=== PATIENT | male | born 1985 | race Caucasian/White ===

== ENCOUNTER 2017-08-22 19:33 | Emergency (ER) | payer SELFPAY ==
--- NOTE | 2017-08-22 19:49 | UC ---
Throat Pain/Nasal Yury HPI - HPI Summary HPI Summary: 32 YEAR OLD MALE PRESENTS WITH RIGHT LOWER MOLAR ABSCESS. - History of Current Complaint Stated Complaint: LUMP UNDER JAW,THROAT/EAR PAIN Time Seen by Provider: 08/22/17 19:49 Hx Obtained From: Patient Onset/Duration: Sudden Onset Severity: Moderate Pain Scale Used: 0-10 Numeric - 8 - Allergies/Home Medications Allergies/Adverse Reactions: Allergies Allergy/AdvReac Type Severity Reaction Status Date / Time No Known Allergies Allergy Verified 03/06/15 19:58 Home Medications: Home Medications Aleve 220mg 660 mg PO Q4H PRN 08/22/17 [History Confirmed 08/22/17] Amoxicillin PO (*) [Amoxicillin 500 MG CAP*] 500 mg PO TID 08/22/17 [History Confirmed 08/22/17] PMH/Surg Hx/FS Hx/Imm Hx Previously Healthy: Yes - Surgical History Surgical History: None - Social History Alcohol Use: Rare Substance Use Type: None Smoking Status (MU): Heavy Every Day Tobacco Smoker Type: Cigarettes Amount Used/How Often: 1 ppd Length of Time of Smoking/Using Tobacco: 10 yrs Have You Smoked in the Last Year: Yes - Immunization History Most Recent Tetanus Shot: 2-3 yrs ago Review of Systems Constitutional: Negative Skin: Negative Eyes: Negative ENT: Dental Pain Respiratory: Negative Cardiovascular: Negative Gastrointestinal: Negative Genitourinary: Negative Motor: Negative Neurovascular: Negative Musculoskeletal: Negative Neurological: Negative Psychological: Negative All Other Systems Reviewed And Are Negative: Yes Physical Exam Triage Information Reviewed: Yes Vital Signs Reviewed: Yes Eye Exam: Normal ENT Exam: Normal Dental: Positive: Abscess @ Neck exam: Normal Neck: Positive: 1 Respiratory Exam: Normal Cardiovascular Exam: Normal Abdominal Exam: Normal Musculoskeletal Exam: Normal Neurological Exam: Normal Psychological Exam: Normal Skin Exam: Normal Throat Pain/Nasal Course/Dx - Differential Dx/Diagnosis Provider Diagnoses: RIGHT MOLAR ABSCESS Discharge - Discharge Plan Condition: Stable Disposition: HOME Prescriptions: Chlorhexidine MW 0.12% 473ML* [Peridex Mouth Wash 0.12%*] 15 ml MT TID PC #1 btl Clindamycin HCl [Clindamycin 150 MG CAP*] 300 mg PO TID #21 cap Naproxen [Naprosyn 500 mg] 500 mg PO BID PRN #30 tab PRN Reason: Pain Patient Education Materials: Abscess (ED) Referrals: No Primary Care Phys,NOPCP [Primary Care Provider] -
[2017-08-22 19:53] VITALS: BP 115/60
[2017-08-22] MEDS ORDERED: Naproxen TAB* 250 MG PO ONE (20:35)
[2017-08-22] MEDS ORDERED: Clindamycin CAP* 150 MG PO ONE (20:35)
[2017-08-22] MEDS ORDERED: Lidocaine 2% VISCOUS* 15 ML UDC PO ONE (20:36)
== END 2017-08-22 21:02 | disposition home or self-care (01) ==
LOC: UCCORT 19:33
DX: K04.7 Periapical abscess without sinus (principal); F17.210 Nicotine dependence, cigarettes, uncomplicated
CPT/HCPCS: 99212; A9270-GY; G0463

== ENCOUNTER 2017-09-19 19:06 | Emergency (ER) | payer SELFPAY ==
[2017-09-19 19:13] VITALS: BP 121/79
[2017-09-19] MEDS ORDERED: Penicillin VK TAB* 250 MG PO ONE (19:14)
--- NOTE | 2017-09-19 19:19 | UC ---
Dental HPI - HPI Summary HPI Summary: patient has had increased pain and pressure in the lower jaw, multiple broken molar and peridontal disease noted.large amount of swelling. - History of Current Complaint Chief Complaint: UCDentalProblem Stated Complaint: DENTAL Time Seen by Provider: 09/19/17 19:13 Hx Obtained From: Patient Onset/Duration: Sudden Onset, Lasting Days Severity: Moderate Aggravating Factor(s): Chewing Alleviating Factor(s): Nothing Related History: Previous Dental Care on Same Tooth, Swelling - Allergies/Home Medications Allergies/Adverse Reactions: Allergies Allergy/AdvReac Type Severity Reaction Status Date / Time No Known Allergies Allergy Verified 09/19/17 19:13 PMH/Surg Hx/FS Hx/Imm Hx Previously Healthy: Yes - Surgical History Surgical History: None - Family History Known Family History: Positive: Hypertension - Social History Alcohol Use: Rare Substance Use Type: None Smoking Status (MU): Heavy Every Day Tobacco Smoker Type: Cigarettes Amount Used/How Often: 1 ppd Length of Time of Smoking/Using Tobacco: 10 yrs Have You Smoked in the Last Year: Yes - Immunization History Most Recent Tetanus Shot: 2-3 yrs ago Review of Systems Constitutional: Negative Skin: Negative Eyes: Negative ENT: Dental Pain Respiratory: Negative Cardiovascular: Negative Gastrointestinal: Negative Genitourinary: Negative Motor: Negative Neurovascular: Negative Musculoskeletal: Negative Neurological: Negative Psychological: Negative Is Patient Immunocompromised?: No All Other Systems Reviewed And Are Negative: Yes Physical Exam Triage Information Reviewed: Yes Appearance: Well-Appearing, Well-Nourished, Pain Distress Vital Signs: Initial Vital Signs Temp 98.8 F 09/19/17 19:10 Pulse 85 09/19/17 19:10 Resp 16 09/19/17 19:10 BP 121/79 09/19/17 19:10 Pulse Ox 98 09/19/17 19:10 Vital Signs Reviewed: Yes Eye Exam: Normal ENT Exam: Normal ENT: Positive: Pharynx normal, Pharyngeal erythema, TMs normal Dental Exam: Normal Dental: Positive: Percussion Tenderness @, Gross Decay/Caries @, Dental Fracture @, Abscess @ - lower right jaw, Cervical Lymphadenopathy - right side Neck exam: Normal Neck: Positive: Supple, Nontender, No Lymphadenopathy Respiratory Exam: Normal Respiratory: Positive: Chest non-tender, Lungs clear, Normal breath sounds Cardiovascular Exam: Normal Cardiovascular: Positive: RRR, No Murmur, Pulses Normal Abdominal Exam: Normal Abdomen Description: Positive: Nontender, No Organomegaly, Soft Bowel Sounds: Positive: Present Musculoskeletal Exam: Normal Musculoskeletal: Positive: Strength Intact, ROM Intact, No Edema Neurological Exam: Normal Neurological: Positive: Alert, Muscle Tone Normal Psychological Exam: Normal Skin Exam: Normal Dental Complaint Course/Dx - Course Course Of Treatment: hx obtained, exam performed ,med reviewed, treated for large dental abcess - Differential Dx/Diagnosis Differential Diagnosis/Dx: Dental Abscess, Dental Caries, Fractured Tooth, Peridontic Disease Provider Diagnoses: dental abcess of bottom molars Discharge - Discharge Plan Condition: Stable Disposition: HOME Prescriptions: Penicillin VK 500 MG TAB(NF) [Penicillin VK 500 mg Tab] 500 mg PO QID #28 tab Patient Education Materials: Dental Abscess (ED) Referrals: No Primary Care Phys,NOPCP [Primary Care Provider] - Additional Instructions: 1. take the medication as prescribed. 2. Increase warm compresses and gargling 3. Eat as tolerated 4. continue with ibuprofen for pain
== END 2017-09-19 19:34 | disposition home or self-care (01) ==
LOC: UCCORT 19:06
DX: K04.7 Periapical abscess without sinus (principal); F17.210 Nicotine dependence, cigarettes, uncomplicated
CPT/HCPCS: 99212; A9270-GY; G0463

== ENCOUNTER 2019-03-18 19:01 | Emergency (ER) | payer OTHER ==
[2019-03-18 19:21] VITALS: BP 127/80
[2019-03-18] MEDS ORDERED: Ibuprofen TAB* 400 MG PO ONE (19:32)
--- NOTE | 2019-03-18 19:32 | UC ---
Hand/Wrist HPI - HPI Summary HPI Summary: Went under his house today to shut off a valve, lost his balance and landed with his left hand onto a board with protruding nails, punctured the proximal thenar eminence and medial 4th digit. Washed the wound without pressure and went to work for the afternoon, with increasing pain over the course of the day. 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 He states that he did not think that he did anything to contaminate the wounds. - History Of Current Complaint Chief Complaint: Shayna Stated Complaint: PUNCTURE WOUNDS - LEFT HAND Time Seen by Provider: 03/18/19 19:23 Hx Obtained From: Patient Onset/Duration: Sudden Onset Severity Initially: Moderate Severity Currently: Severe Pain Intensity: 9 Character Of Pain: Aching, Throbbing Aggravating Factor(s): Movement, Flexion, Extension Alleviating Factor(s): Nothing - had not taken analgesics Associated Signs And Symptoms: Positive: Swelling Related History: Dominant Hand Right - Risk Factors Compartment Syndrome Risk Factors: Pain - Allergies/Home Medications Allergies/Adverse Reactions: Allergies Allergy/AdvReac Type Severity Reaction Status Date / Time No Known Allergies Allergy Verified 03/18/19 19:23 PMH/Surg Hx/FS Hx/Imm Hx Previously Healthy: Yes - Surgical History Surgical History: None - Family History Known Family History: Positive: Hypertension - Social History Occupation: Employed Full-time Lives: With Family Alcohol Use: Rare Substance Use Type: None Smoking Status (MU): Heavy Every Day Tobacco Smoker Type: Cigarettes Amount Used/How Often: 1 ppd Length of Time of Smoking/Using Tobacco: 10 yrs Have You Smoked in the Last Year: Yes - Immunization History Most Recent Tetanus Shot: 2007 Review of Systems All Other Systems Reviewed And Are Negative: Yes Musculoskeletal: Positive: Arthralgia, Decreased ROM, Myalgia Physical Exam Triage Information Reviewed: Yes Appearance: Well-Appearing, Well-Nourished, Pain Distress - moderate Vital Signs: Initial Vital Signs Temp 98.2 F 03/18/19 19:16 Pulse 89 03/18/19 19:16 Resp 16 03/18/19 19:16 BP 127/80 03/18/19 19:16 Pulse Ox 97 03/18/19 19:16 Respiratory: Positive: Lungs clear, Normal breath sounds Cardiovascular: Positive: RRR, No Murmur Musculoskeletal Exam: Other - Swelling of the hypothenar eminence with crusted puncture wound approx 6 cm. Puncture wound with crust proximal medial left fourth digit. Areas are tender to palpation. No joint swelling Musculoskeletal: Positive: ROM Intact - passive movment of the wrist, ROM Limited @ - pain with extension of fingers. Neurological Exam: Normal Neurological: Positive: Alert Skin Exam: Other - Faint erythema over the PW ulnar border of the hand, no warmth, no lymphangitis. Diagnostics - Radiology left hand Radiology Interpretation Completed By: ED Physician - No fracture or retained foreign body seen. + swelling of hypothenar eminence. Hand/Wrist Course/Dx - Course Course Of Treatment: cephalexin given for prevention of infection. Advised must go to the ER if pain and swelling progress. Tetanus booster given Reviewed [facility] number [id number] - Differential Dx/Diagnosis Differential Diagnosis/HQI/PQRI: Cellulitis, Puncture Wound Provider Diagnosis: Puncture wound of hand, left, Puncture wound of finger of left hand Discharge - Sign-Out/Discharge Documenting (check all that apply): Patient Departure All imaging exams completed and their final reports reviewed: No - Discharge Plan Condition: Stable Disposition: HOME Prescriptions: Cephalexin CAP* [Keflex 500 CAP*] 500 mg PO QID #28 cap HYDROcodone/ACETAMIN 5-325 MG* [[place] 5-325 TAB*] 2 tab PO Q6H PRN #10 tab MDD 8 PRN Reason: Pain Patient Education Materials: Puncture Wound (ED), Diphtheria/Acellular Pertussis/Tetanus Booster Vaccine (By injection) Referrals: No Primary Care Phys,NOPCP [Primary Care Provider] - Additional Instructions: I suggest soaking your hand for 10 to 15 minutes in warm soapy water or Epsom salts. Take the next dose of cephalexin before bed tonight to ensure a good high dose of antibiotics are on board to decrease the risk of infection. If there is increased pain or swelling, you must go to the emergency room for assessment. Keep your hand elevated as best as possible. Use ibuprofen 800mg every 6 hours as needed for pain. Take with food and stop if it upsets your stomach. You have a prescription for short term use of hydrocodone for pain control You received a tetanus booster tonight. - Billing Disposition and Condition Condition: STABLE Disposition: Home
[2019-03-18] MEDS ORDERED: Tetan/Diph/Pertus SYR(Tdap)* 0.5 ML SYR(BOOSTRIX) use SYR IM ONE (19:33)
[2019-03-18] MEDS ORDERED: Cephalexin CAP* 500 MG PO ONE (20:03)
--- NOTE | 2019-03-19 08:49 | UC ---
- Progress Note Progress Note: xray report left hand : IMPRESSION: No foreign body or subcutaneous air is noted. No fracture is noted. Course/Dx - Diagnoses Provider Diagnoses: Puncture wound of hand, left, Puncture wound of finger of left hand Discharge - Sign-Out/Discharge Documenting (check all that apply): Patient Departure All imaging exams completed and their final reports reviewed: Yes - Discharge Plan Condition: Stable Disposition: HOME Prescriptions: Cephalexin CAP* [Keflex 500 CAP*] 500 mg PO QID #28 cap HYDROcodone/ACETAMIN 5-325 MG* [[place] 5-325 TAB*] 2 tab PO Q6H PRN #10 tab MDD 8 PRN Reason: Pain Patient Education Materials: Diphtheria/Acellular Pertussis/Tetanus Booster Vaccine (By injection), Puncture Wound (ED) Referrals: No Primary Care Phys,NOPCP [Primary Care Provider] - Additional Instructions: I suggest soaking your hand for 10 to 15 minutes in warm soapy water or Epsom salts. Take the next dose of cephalexin before bed tonight to ensure a good high dose of antibiotics are on board to decrease the risk of infection. If there is increased pain or swelling, you must go to the emergency room for assessment. Keep your hand elevated as best as possible. Use ibuprofen 800mg every 6 hours as needed for pain. Take with food and stop if it upsets your stomach. You have a prescription for short term use of hydrocodone for pain control You received a tetanus booster tonight. - Billing Disposition and Condition Condition: STABLE Disposition: Home
== END 2019-03-18 20:29 | disposition home or self-care (01) ==
LOC: UCCORT 19:01
DX: S61.235A Puncture wound without foreign body of left ring finger without damage to nail, initial encounter (principal); S61.431A Puncture wound without foreign body of right hand, initial encounter; F17.210 Nicotine dependence, cigarettes, uncomplicated; W17.89XA Other fall from one level to another, initial encounter; W45.0XXA Nail entering through skin, initial encounter; Y92.009 Unspecified place in unspecified non-institutional (private) residence as the place of occurrence of the external cause
CPT/HCPCS: 90471; 90715; 99212; A9270-GY; G0463

== ENCOUNTER 2019-05-31 17:31 | Emergency (ER) | payer OTHER ==
[2019-05-31 18:29] VITALS: BP 110/71
[2019-05-31] MEDS ORDERED: Ibuprofen ADULT LIQ* 600 MG/30 ML UDC PO ONE (19:02)
--- NOTE | 2019-05-31 19:03 | UC ---
UC General HPI - HPI Summary HPI Summary: pt is c/o head congestion, sore throat, cough, chest congestion, f/c's and bodyaches since yesterday. + SOB on exertion. No cp or hx asthma - History of Current Complaint Chief Complaint: UCGeneralIllness Stated Complaint: BODY ACHES,FATIGUE,SOB Time Seen by Provider: 05/31/19 18:57 Hx Obtained From: Patient Onset/Duration: Gradual Onset Timing: Constant Pain Intensity: 8 Associated Signs & Symptoms: Negative: Diarrhea, Dysuria, Vomiting - Allergy/Home Medications Allergies/Adverse Reactions: Allergies Allergy/AdvReac Type Severity Reaction Status Date / Time No Known Allergies Allergy Verified 05/31/19 18:29 Home Medications: Home Medications NK [No Home Medications Reported] 05/31/19 [History Confirmed 05/31/19] PMH/Surg Hx/FS Hx/Imm Hx Previously Healthy: Yes - Surgical History Surgical History: None - Family History Known Family History: Positive: Hypertension - Social History Occupation: Employed Full-time Alcohol Use: Rare Substance Use Type: None Smoking Status (MU): Heavy Every Day Tobacco Smoker Type: Cigarettes Amount Used/How Often: 1 ppd Length of Time of Smoking/Using Tobacco: 10 yrs Have You Smoked in the Last Year: Yes - Immunization History Most Recent Tetanus Shot: 2007 Review of Systems All Other Systems Reviewed And Are Negative: Yes Constitutional: Positive: Fever, Chills, Fatigue Skin: Negative: Rash ENT: Positive: Sore Throat, Sinus Congestion. Negative: Ear Ache Respiratory: Positive: Shortness Of Breath, Cough Cardiovascular: Negative: Palpitations, Chest Pain Gastrointestinal: Negative: Abdominal Pain, Vomiting, Diarrhea, Nausea Genitourinary: Negative: Dysuria Musculoskeletal: Positive: Myalgia Physical Exam Triage Information Reviewed: Yes Appearance: Ill-Appearing - but non toxic Vital Signs: Initial Vital Signs Temp 99.3 F 05/31/19 18:27 Pulse 73 05/31/19 18:27 Resp 16 05/31/19 18:27 BP 110/71 05/31/19 18:27 Pulse Ox 98 05/31/19 18:27 Vital Signs Reviewed: Yes Eyes: Positive: Conjunctiva Clear ENT: Positive: Pharyngeal erythema, TMs normal. Negative: Nasal congestion, Nasal drainage, Sinus tenderness Neck: Positive: Supple, Tenderness @ - peritonsilar, Enlarged Nodes @ - peritonsilar Respiratory: Positive: No respiratory distress, Decreased breath sounds - slightly, Other: - cough is congested Cardiovascular: Positive: RRR, No Murmur Abdomen Description: Positive: Nontender Musculoskeletal: Positive: ROM Intact Neurological: Positive: Alert Psychological: Positive: Age Appropriate Behavior Skin Exam: Normal Skin: Negative: Rashes Diagnostics - Laboratory Lab Results: rapid strep=neg. - Radiology No standard instances Radiology Interpretation Completed By: ED Physician - wet read=nad Course/Dx - Differential Dx - Multi-Symptom Differential Diagnoses: Other - non toxic. not hypoxic. rapid strep=neg. cxr= nad. - Diagnoses Provider Diagnosis: URI (upper respiratory infection), Pharyngitis, Cough Discharge - Sign-Out/Discharge Documenting (check all that apply): Patient Departure All imaging exams completed and their final reports reviewed: No - Discharge Plan Condition: Stable Disposition: HOME Patient Education Materials: Upper Respiratory Infection (DC), Pharyngitis (ED) , Acute Cough (ED) Forms: *Work Release Referrals: Edward Fisher MD [Medical Doctor] - Additional Instructions: FOLLOW UP IF NOT BETTER WITHIN 5 DAYS OR SOONER IF WORSE. - Billing Disposition and Condition Condition: STABLE Disposition: Home
--- NOTE | 2019-06-01 08:53 | UC ---
- Progress Note Progress Note: chest xray report: IMPRESSION: #. No evidence for pneumonia. #. Elevated lung volumes may reflect obstructive lung disease or simply exuberant inspiratory effort for examination. Course/Dx - Diagnoses Provider Diagnoses: URI (upper respiratory infection), Pharyngitis, Cough Discharge - Sign-Out/Discharge Documenting (check all that apply): Patient Departure All imaging exams completed and their final reports reviewed: Yes - Discharge Plan Condition: Stable Disposition: HOME Patient Education Materials: Pharyngitis (ED), Upper Respiratory Infection (DC) , Acute Cough (ED) Forms: *Work Release Referrals: Edward Fisher MD [Medical Doctor] - Additional Instructions: FOLLOW UP IF NOT BETTER WITHIN 5 DAYS OR SOONER IF WORSE. - Billing Disposition and Condition Condition: STABLE Disposition: Home
== END 2019-05-31 19:40 | disposition home or self-care (01) ==
LOC: UCCORT 17:31
DX: J06.9 Acute upper respiratory infection, unspecified (principal); J02.9 Acute pharyngitis, unspecified; R05 Cough; F17.210 Nicotine dependence, cigarettes, uncomplicated
CPT/HCPCS: 71046; 87651; 99212; A9270-GY; G0463

== ENCOUNTER 2019-11-20 15:35 | Emergency (ER) | payer OTHER ==
[2019-11-20 16:27] VITALS: BP 105/66
--- NOTE | 2019-11-20 16:53 | UC ---
Ear Complaint HPI - HPI Summary HPI Summary: Left ear pain for one week. No recent cold symptoms.Outer ear is very tender to touch. No drainage from ear. Mild muffling of hearing. - History of Current Complaint Chief Complaint: UCEar Stated Complaint: LEFT EAR COMPLAINT Time Seen by Provider: 11/20/19 16:44 Hx Obtained From: Patient Pain Intensity: 8 Pain Scale Used: 0-10 Numeric Aggravating Factors: Nothing Alleviating Factors: Nothing - Allergies/Home Medications Allergies/Adverse Reactions: Allergies Allergy/AdvReac Type Severity Reaction Status Date / Time No Known Allergies Allergy Verified 11/20/19 16:21 Home Medications: Home Medications Naproxen Sodium [Aleve] 220 mg PO PRN 11/20/19 [History] PMH/Surg Hx/FS Hx/Imm Hx - Additional Past Medical History Additional PMH: no chronic condition Previously Healthy: Yes - Surgical History Surgical History: Yes Surgery Procedure, Year, and Place: ear tubes as a child - Family History Known Family History: Positive: Hypertension - Social History Alcohol Use: Rare Substance Use Type: None Smoking Status (MU): Heavy Every Day Tobacco Smoker Type: Cigarettes Amount Used/How Often: 1 ppd Length of Time of Smoking/Using Tobacco: 10 yrs Have You Smoked in the Last Year: Yes Household Exposure Type: Cigarettes - Immunization History Most Recent Tetanus Shot: 2007 Review of Systems All Other Systems Reviewed And Are Negative: Yes Constitutional: Negative: Fever Skin: Negative: Rash ENT: Positive: Ear Ache Respiratory: Negative: Cough Physical Exam Triage Information Reviewed: Yes Appearance: Well-Appearing Vital Signs: Initial Vital Signs Temp 99.3 F 11/20/19 16:22 Pulse 74 11/20/19 16:22 Resp 18 11/20/19 16:22 BP 105/66 11/20/19 16:22 Pulse Ox 97 11/20/19 16:22 Vital Signs Reviewed: Yes Eyes: Positive: Conjunctiva Clear ENT: Positive: Pharynx normal, TMs normal - R side, Other - L TM normal but canal is inflammed w/ debris and tender upon otoscope insertion. no mastoid tenderness and some pain w/ auricle manipulation Neck: Positive: Supple Ear Complaint Course/Dx - Course Course Of Treatment: L OE; acute. Will tx w/ antibx but advised to return if he feels the cartilage is getting involved. AFebrile and good vitals. - Differential Dx/Diagnosis Differential Diagnosis/HQI/PQRI: Otitis Externa, Otitis Media, Other Provider Diagnosis: Otitis externa Discharge ED - Sign-Out/Discharge Documenting (check all that apply): Patient Departure All imaging exams completed and their final reports reviewed: No Studies - Discharge Plan Condition: Good Disposition: HOME Prescriptions: Ciproflox/Dexameth OTIC.SUSP* [Ciprodex OTIC.SUSP*] 4 drop .SEE ORDER BID 7 Days #1 btl Patient Education Materials: Otitis Externa (DC) Referrals: No Primary Care Phys,NOPCP [Primary Care Provider] - Additional Instructions: Please finish full 7 days of treatment and return if symptoms persist. - Billing Disposition and Condition Condition: GOOD Disposition: Home - Attestation Statements Provider Attestation: This patient was not seen by me I was available for consult Chart reviewed KELLY
== END 2019-11-20 17:05 | disposition home or self-care (01) ==
LOC: UCCORT 15:35
DX: H60.502 Unspecified acute noninfective otitis externa, left ear (principal); F17.210 Nicotine dependence, cigarettes, uncomplicated
CPT/HCPCS: 99212; G0463

== ENCOUNTER 2020-02-23 17:38 | Emergency (ER) | payer OTHER ==
[2020-02-23] MEDS ORDERED: Eye Irrigation Solution 30 ML BOTTLE RIGHT EYE ONE (18:28)
[2020-02-23] MEDS ORDERED: Fluorescein Sodium TOPICAL* 1 MG TEST STRIP OPHTHALMIC ONE (18:29)
[2020-02-23] MEDS ORDERED: Tetracaine 0.5% OPTH.SOL 4 ML* 1 DROP BTL RIGHT EYE ONE (18:29)
[2020-02-23 18:32] VITALS: BP 108/70
--- NOTE | 2020-02-23 18:33 | UC ---
Eye Complaint HPI - HPI Summary HPI Summary: 34 y/o male presents to the urgent care c/o RT eye pain w/ redness and a FB sensation since yesterday. Pt reports he was working under his car and felt dust went into his eye. He tried to removed it w/ a cotton swab and felt better. However 2 hrs later he was rubbing it and he developed eye irritation. This morning his eye was more red w/ clear eye discharge and a FB sensation. He has mild photophobia. He can read, but it is uncomfortable to keep his eye open. Pain is 7/10 and irritated. Pt denies visual changes, AMAYA, dizziness, fever , cough, SOB, sick contact, abdominal pain, chest pain, N/V/D. Pt is UTD w Tetanus vaccines which was given in 2019. - History of Current Complaint Stated Complaint: RIGHT EYE FOREIGN BODY Time Seen by Provider: 02/23/20 18:28 Hx Obtained From: Patient Onset/Duration: Gradual Onset, Lasting Days - 1 day, Still Present Timing: Constant Severity Initially: Moderate Severity Currently: Moderate Pain Intensity: 7 - RT eye irritation Pain Scale Used: 0-10 Numeric Location of Injury: Conjunctiva - RT red w/ FB sensation Character: Foreign Body Sensation Aggravating Factor(s): Light, Blinking Alleviating Factor(s): Nothing Associated Signs And Symptoms: Positive: Drainage (Clear). Negative: Vision Impairment Bilateral, Swelling Related History: Foreign Body - Pt was working under his car and a FB got into his RT eye - Risk Factors Penetrating Injury Risk Factor: Negative Globe Rupture Risk Factors: Negative Acute Glaucoma Risk Factors: Negative Optic Artery Occlusion Risk Factors: Negative - Allergies/Home Medications Allergies/Adverse Reactions: Allergies Allergy/AdvReac Type Severity Reaction Status Date / Time No Known Allergies Allergy Verified 02/23/20 18:27 Home Medications: Home Medications Erythromycin OPTH OINT* [Erythromycin 0.5% OPTH OINT*] 1 applic RIGHT EYE TID # 1 ophth.oint 02/23/20 [Rx] PMH/Surg Hx/FS Hx/Imm Hx Previously Healthy: Yes - Pt denies PMHX - Surgical History Surgical History: Yes Surgery Procedure, Year, and Place: ear tubes as a child - Family History Known Family History: Positive: Hypertension, Diabetes - Social History Occupation: Employed Full-time Lives: With Family Alcohol Use: Rare Substance Use Type: None Smoking Status (MU): Heavy Every Day Tobacco Smoker Type: Cigarettes Amount Used/How Often: 1/2 ppd Length of Time of Smoking/Using Tobacco: 10 yrs Have You Smoked in the Last Year: Yes Household Exposure Type: Cigarettes - Immunization History Most Recent Tetanus Shot: 2007 Review of Systems All Other Systems Reviewed And Are Negative: Yes Constitutional: Positive: Negative Skin: Positive: Negative Eyes: Positive: Drainage - RT eye clear, Eye Redness - RT eye w/ FB sensation, Photophobia - mild ENT: Positive: Negative Respiratory: Positive: Negative Cardiovascular: Positive: Negative Gastrointestinal: Positive: Negative Genitourinary: Positive: Negative Motor: Positive: Negative Neurovascular: Positive: Negative Musculoskeletal: Positive: Negative Neurological/Mental Status: Positive: Negative Psychological: Positive: Negative Is Patient Immunocompromised?: No Physical Exam - Summary Physical Exam Summary: Vital Signs Reviewed: Yes General: Well appearing, well nourished male in no apparent pain distress Eyes: Positive: RT Conjunctiva Inflamed - Visual acuity: WNL,Visual you: full to confrontation.PERRLA, EOMI intact w/out limitation or complaint of pain. eyelashes clear. mild tearing and yellowish drainage observed. Positive FB body observed around 3 o'clock w/ the magnifying glass. No ciliary flush. No chemosis, No photophobia. Normal fundoscopic exam; no proptosis, exophthalmos, nystagmus. ENT: Positive: Normal ENT inspection, Hearing grossly normal, Pharynx normal, Nasal congestion, Nasal drainage - clear, TMs normal - B/L external ear canal clear , TM's WNL. Negative: Tonsillar swelling, Tonsillar exudate Neck: Positive: Supple, Nontender, No Lymphadenopathy Respiratory: Positive: Chest nontender, Lungs clear, Normal breath sounds, No respiratory distress Cardiovascular: Positive: RRR, No Murmur, Pulses Normal, Brisk Capillary Refill Abdomen Description: Positive: Nontender, No Organomegaly, Soft. Negative: CVA Tenderness (R), CVA Tenderness (L) Bowel Sounds: Positive: Present Musculoskeletal: Positive: Strength Intact, ROM Intact, No Edema Neurological Exam: Normal Psychological Exam: Normal Skin Exam: Normal Triage Information Reviewed: Yes Vital Signs: Initial Vital Signs Temp 98 F 02/23/20 18:27 Pulse 70 02/23/20 18:27 Resp 18 02/23/20 18:27 BP 108/70 02/23/20 18:27 Pulse Ox 98 02/23/20 18:27 Eye Complaint Course/Dx - Course Course Of Treatment: 34 y/o male presents to the urgent care c/o RT eye pain w/ redness and a FB sensation since yesterday. Pt reports he was working under his car and felt dust went into his eye. He tried to removed it w/ a cotton swab and felt better. However 2 hrs later he was rubbing it and he developed eye irritation. This morning his eye was more red w/ clear eye discharge and a FB sensation. He has mild photophobia. He can read, but it is uncomfortable to keep his eye open. Pain is 7/10 and irritated. Pt denies visual changes, AMYAA, dizziness, fever , cough, SOB, sick contact, abdominal pain, chest pain, N/V/D. Pt is UTD w Tetanus vaccines which was given in 2019. Hx obtained. LF eye with conjunctiva clear, sclera is white. RT eye with inflamed conjunctiva and clear eye discharge. B/L PERRLA, EOMI w/o any nystagmus or strabismus. Fundi appears benign. Disks are well delineated. There are no hemorrhages or exudates. PT declines Visual acuity due to eye irritation and visual you are within normal limits. Positive foreign body observed w/ magnifying glass around 3 o' clock. 2 drops of Tetracaine optha drops placed on Pts RT eye, then irrigated with saline drops to flush any foreign particles, then fluorescein instillation and examination with a UV lamp. Positive corneal abrasion observed as a line between 3-6 oclock. FB unable to removed. Erythromycin ophthalmic oint applied on his RT eye and then covered w/ and eye patch for 1 day for comfort . PT Rx Erythromycin ophthalmic ointment and advised to f/u at [facility] [place]. Pt understood and agreed. - Differential Dx/Diagnosis Differential Diagnosis/HQI/PQRI: Corneal Abrasion, Foreign Body Provider Diagnosis: Right corneal abrasion, Foreign body of right eye Discharge ED - Sign-Out/Discharge Documenting (check all that apply): Patient Departure - D/C home All imaging exams completed and their final reports reviewed: No Studies - Discharge Plan Condition: Stable Disposition: HOME Prescriptions: Erythromycin OPTH OINT* [Erythromycin 0.5% OPTH OINT*] 1 applic RIGHT EYE TID # 1 ophth.oint Patient Education Materials: Corneal Abrasion (ED), Eye Foreign Body (ED) Referrals: [facility] [[facility]] - If Needed Sonia Patel MD [Medical Doctor] - 1 Day Ayo Hollins MD [Medical Doctor] - 1 Day Additional Instructions: 1-Please apply ophthalmic ointment in your Rt eye as directed. Please keep your eye cover w/ eye patch for 1 day. 2- Take Ibuprofen or Tylenol PO q6-8hrs prn after meals as directed to alleviate symptoms of pain and swelling 3- Please f/u w/ revenue enforcement collection agent Dr Patel or DR Hollins tomorrow for further evaluation and treatment on your eye Foreign body and corneal abrasion - Billing Disposition and Condition Condition: STABLE Disposition: Home
[2020-02-23] MEDS ORDERED: Erythromycin OPTH OINT* APPLIC OINT RIGHT EYE ONE (19:18)
[2020-02-23] MEDS ORDERED: Erythromycin TOPICAL GEL* 30 GM TUBE TOPICAL SCH (21:00)
== END 2020-02-23 19:40 | disposition home or self-care (01) ==
LOC: UCCORT 17:38
DX: T15.01XA Foreign body in cornea, right eye, initial encounter (principal); X58.XXXA Exposure to other specified factors, initial encounter; Y93.89 Activity, other specified; Y92.9 Unspecified place or not applicable; F17.210 Nicotine dependence, cigarettes, uncomplicated
CPT/HCPCS: 99213; A9270-GY; G0463